=== PATIENT | male | born 1985 | race Hispanic/Latino ===

== ENCOUNTER 2020-08-14 11:19 | Outpatient (CLI) | payer OTHER ==
--- NOTE | 2020-08-14 12:00 | RAD ---
EXAM: Multiple views of the mastoid sinuses HISTORY: Chronic left mastoiditis COMPARISON: None FINDINGS: There appears to be normal aeration of the right mastoid air cells. The left mastoid air ce lls are not definitely aerated and are likely opacified. IMPRESSION: Likely left mastoid air cell opacification
== END 2020-08-14 11:20 | disposition home or self-care (01) ==
LOC: BICRAD 11:19
PROVIDERS: ATTEND Internal Medicine
DX: H70.12 Chronic mastoiditis, left ear (principal)
CPT/HCPCS: 70130